=== PATIENT | female | born 1960 | race Caucasian/White ===

== ENCOUNTER 2020-09-29 19:32 | Emergency (ER) | payer MEDICARE, OTHER ==
[~2020-09-29 19:32] MED LIST: LEVAQUIN750 MG PO; MACROBID 100 M100 MG PO
== END 2020-09-30 13:10 | disposition short-term general hospital (02) ==
LOC: ER1 19:32
PROVIDERS: Family Medicine
DX: R45.851 Suicidal ideations (principal); F32.9 Major depressive disorder, single episode, unspecified; F17.200 Nicotine dependence, unspecified, uncomplicated; Z20.822 Contact with and (suspected) exposure to COVID-19; Z88.5 Allergy status to narcotic agent; Z88.1 Allergy status to other antibiotic agents
CPT/HCPCS: 80307; 81001; 99285; U0002

== ENCOUNTER 2021-01-06 23:11 | Emergency (ER) | payer MEDICARE ==
[2021-01-07 00:06] LABS: HEMOGLOBIN 13.7 gm/dl (12.3-15.3); RED BLOOD COUNT 4.16 M/UL (4.00-5.10); WHITE BLOOD COUNT 8.5 K/UL (4.5-11.0)
[2021-01-07 00:31] LABS: BUN/CREATININE RATIO 15 (0-10)
== END 2021-01-07 14:47 | disposition other institution (70) ==
LOC: ER1 23:11
PROVIDERS: Emergency Medicine; Student in an Organized Health Care Education/Training Program
DX: T44.7X1A Poisoning by beta-adrenoreceptor antagonists, accidental (unintentional), initial encounter (principal); F17.200 Nicotine dependence, unspecified, uncomplicated; Z79.899 Other long term (current) drug therapy; Z88.5 Allergy status to narcotic agent; Z88.1 Allergy status to other antibiotic agents; Z20.822 Contact with and (suspected) exposure to COVID-19
CPT/HCPCS: 71045; 80053; 80307; 81001; 82550; 82553; 83735; 83874; 84100; 84439; 84443; 84484; 85025; 93005; 99285; G0480; U0002

== ENCOUNTER 2021-04-21 17:51 | Emergency (ER) | payer MEDICARE ==
[2021-04-21 19:36] LABS: HEMOGLOBIN 13.4 gm/dl (12.3-15.3); RED BLOOD COUNT 4.08 M/UL (4.00-5.10); WHITE BLOOD COUNT 5.6 K/UL (4.5-11.0)
[2021-04-21 20:22] LABS: BUN/CREATININE RATIO 10 (0-10)
== END 2021-04-21 21:40 | disposition home or self-care (01) ==
LOC: ER1 17:51
PROVIDERS: Emergency Medicine
DX: R45.851 Suicidal ideations (principal); Z20.822 Contact with and (suspected) exposure to COVID-19; Z88.1 Allergy status to other antibiotic agents; Z88.5 Allergy status to narcotic agent
CPT/HCPCS: 80053; 80307; 81001; 82550; 82553; 83874; 84484; 85025; 99284; U0002

== ENCOUNTER → 2021-11-14 | Outpatient (CLI) | payer MEDICARE ==
[2021-11-14 13:11] LABS: HEMOGLOBIN 13.5 gm/dl (12.3-15.3); RED BLOOD COUNT 4.18 M/UL (4.00-5.10); WHITE BLOOD COUNT 7.5 K/UL (4.5-11.0)
[2021-11-14 13:35] LABS: BUN/CREATININE RATIO 22 (0-10)
[2021-11-17 08:15] LABS: VITAMIN D, 25-HYDROXY 14.9 ng/mL (30.0-100.0)
== END ==
LOC: LAB 12:33
PROVIDERS: Family Medicine
DX: R00.2 Palpitations (principal); R53.83 Other fatigue; J98.11 Atelectasis
CPT/HCPCS: 36415; 71045; 80053; 82607; 83921; 84443; 85025; 93005